=== PATIENT | female | born 1970 | race Caucasian/White ===

== ENCOUNTER 2017-11-15 18:49 | Emergency (ER) | payer SELFPAY ==
[2017-11-15] MEDS ORDERED: BENADRYL IV ONE (19:04)
[2017-11-15] MEDS ORDERED: REGLAN IV ONE (19:04)
[2017-11-15] MEDS ORDERED: NACL 0.9% 500 ML 500 ML IV ONE (19:04)
--- NOTE | 2017-11-15 19:04 | Emergency Department Report ---
ED Neuro Deficit HPI - General Chief Complaint: Neuro Symptoms/Deficit Stated Complaint: NEURO SYMPTOMS Time Seen by Provider: 11/15/17 19:02 Source: patient, family, RN notes reviewed Mode of arrival: Ambulatory Limitations: Language Barrier - History of Present Illness Initial Comments: This is a 47-year-old female who is not known to this provider previously. She presents to the ER with a complaint of numbness and tingling in her left arm and headache. The patient requested that her daughter translate for her. Her headache started around 2:00 this morning. Numbness, tingling and weakness in the left arm is reported to have started at 3:00 PM. The patient endorses no exacerbating or relieving factors. Her headache radiates down her left neck down her left arm and is retro-orbital. She cannot describe the qualitative nature. -: Gradual Location: left arm Presenting Symptoms: Present: Weak/Paralyzed One Side. Absent: Blurred/Loss of Vision, Facial Droop/Numbness, Unable to Speak Clearly, Altered Mental Status History of same: No Place: home Severity: moderate Quality: other Improves With: other Worsens With: other On Anticoagulants: No Context: gradual onset Associated Symptoms: headaches, malise, weakness. denies: confusion, chest pain , cough, diaphoresis, fever/chills, loss of appetite, nausea/vomiting, vertigo, seizures - Related Data Allergies/Adverse Reactions: Allergies Allergy/AdvReac Type Severity Reaction Status Date / Time Penicillins Allergy Rash Verified 11/15/17 18:55 ED Review of Systems ROS: Stated complaint: NEURO SYMPTOMS Other details as noted in HPI Comment: All other systems reviewed and negative ED Past Medical Hx - Past Medical History Previous Medical History?: Yes Additional medical history: hypotension - Surgical History Past Surgical History?: Yes Additional Surgical History: x 3 - Social History Smoking Status: Never Smoker Substance Use Type: None ED Neuro Physical Exam - General Limitations: Language Barrier General appearance: alert, anxious Suspected Stroke: No - Head Head exam: Present: atraumatic, normocephalic - Eye Eye exam: Present: normal appearance, PERRL, EOMI. Absent: nystagmus - ENT ENT exam: Present: normal exam, normal orophraynx, mucous membranes moist, normal external ear exam - Neck Neck exam: Present: normal inspection, full ROM. Absent: tenderness, meningismus - Respiratory Respiratory exam: Present: normal lung sounds bilaterally. Absent: respiratory distress - Cardiovascular Cardiovascular Exam: Present: regular rate, normal rhythm, normal heart sounds. Absent: bradycardia, tachycardia, irregular rhythm, systolic murmur, diastolic murmur, rubs, gallop - GI/Abdominal GI/Abdominal exam: Present: soft, normal bowel sounds. Absent: distended, tenderness, guarding, rebound, rigid, pulsatile mass - Extremities Exam Extremities exam: Present: normal inspection, full ROM, normal capillary refill , other (2+ pulses noted in the bilateral upper, lower extremities. Compartments soft. No long bony tenderness. The pelvis is stable.). Absent: tenderness, pedal edema, joint swelling, calf tenderness - Back Exam Back exam: Present: normal inspection, full ROM. Absent: tenderness, CVA tenderness (R), paraspinal tenderness, vertebral tenderness - Neurological Exam Neurological exam: Present: alert, CN II-XII intact, motor sensory deficit ( there is decreased sensation to light touch in the left upper extremity. There is 5 out of 5 strength bilateral upper, lower extremities. Sensation intact to light touch right upper, bilateral lower extremities) - NIHSS Assessment Interval: Baseline 1a. Level of Consciousness: alert 1b. LOC Questions: answers correctly 1c. LOC Commands: performs tasks correctly 2. Best Gaze: normal 3. Visual: no visual loss 4. Facial Palsy: normal symmetrical movement 5b. Motor Arm Right: no drift 5a. Motor Arm Left: no drift 6a. Motor Leg Left: no drift 6b. Motor Leg Right: no drift 7. Limb Ataxia: absent 8. Sensory: mild/moderate sensory loss 9. Best Language: no aphasia 10. Dysarthria: normal 11. Extinction/Inattention: no abnormality Total Score: 1 Stroke Severity: Minor Stroke - Psychiatric Psychiatric exam: Present: anxious - Skin Skin exam: Present: warm, dry, intact, normal color. Absent: rash ED Course Vital Signs 11/15/17 11/15/17 11/15/17 18:56 19:02 19:14 Temperature 98.3 F Pulse Rate 105 H 84 Respiratory 18 18 18 Rate Blood Pressure 141/93 129/81 O2 Sat by Pulse 99 99 98 Oximetry 11/15/17 11/15/17 19:16 19:30 Temperature Pulse Rate 86 80 Respiratory 25 H 25 H Rate Blood Pressure 129/81 121/78 O2 Sat by Pulse 98 97 Oximetry - Reevaluation(s) Reevaluation #1: 11/15/17 20:22 Differential diagnosis, including but not limited to: Complex migraine, stroke, transient ischemic attack, multiple sclerosis, cervical radiculopathy Assessment and plan: 47-year-old female complaining of left-sided head pain, reported left arm weakness, left arm numbness. The patient presented at approximately 4 hours after her sensory and motor symptom onset. On her exam, she has 5 out of 5 strength in the bilateral upper, lower extremities, and reported decreased sensation to light touch only in the left upper extremity. His appears sensory syndrome, NIH score of 1. In addition, her headache started hours prior to presentation. For these reasons, I deem the patient to not be a TPA candidate. Noncontrast CT scan of the brain is negative for acute disease. An angiogram of the head and neck also pending. Highly doubt significant large vascular occlusion. This case was discussed with consulting stroke neurologist, Dr. Raymond Shipman, who agrees with this aforementioned plan of care. The patient's presumed migraine will also be treated symptomatically. Reevaluation #2: 11/15/17 22:43 CT angiogram of the head and neck are negative. Aspirin is ordered. The Hospital physician, Dr. Freitas accepts to the medical service - Lab Data Result diagrams: 11/15/17 19:00 11/15/17 19:00 Lab Results 11/15/17 11/15/17 11/15/17 Range/Units 19:00 19:00 19:00 WBC 11.8 H (4.5-11.0) K/mm3 RBC 4.62 (3.65-5.03) M/mm3 Hgb 13.7 (10.1-14.3) gm/dl Hct 40.8 (30.3-42.9) % MCV 88 (79-97) fl MCH 30 (28-32) pg MCHC 34 (30-34) % RDW 14.8 (13.2-15.2) % Plt Count 222 (140-440) K/mm3 Lymph % (Auto) 24.5 (13.4-35.0) % [place] % (Auto) 7.9 H (0.0-7.3) % Eos % (Auto) 1.1 (0.0-4.3) % Baso % (Auto) 0.4 (0.0-1.8) % Lymph # 2.9 (1.2-5.4) K/mm3 [place] # 0.9 H (0.0-0.8) K/mm3 Eos # 0.1 (0.0-0.4) K/mm3 Baso # 0.0 (0.0-0.1) K/mm3 Seg Neutrophils % 66.1 (40.0-70.0) % Seg Neutrophils # 7.8 H (1.8-7.7) K/mm3 PT 13.6 (12.2-14.9) Sec. INR 0.99 (0.87-1.13) APTT 34.0 (24.2-36.6) Sec. Thrombin Time (15.1-19.6) Sec. Sodium 136 L (137-145) mmol/L Potassium 3.9 (3.6-5.0) mmol/L Chloride 97.3 L (98-107) mmol/L Carbon Dioxide 21 L (22-30) mmol/L Anion Gap 22 mmol/L BUN 14 (7-17) mg/dL Creatinine 0.6 L (0.7-1.2) mg/dL Estimated GFR > 60 ml/min BUN/Creatinine Ratio 23 % Glucose 129 H (65-100) mg/dL Calcium 9.2 (8.4-10.2) mg/dL Troponin T < 0.010 (0.00-0.029) ng/mL 11/15/17 Range/Units 19:00 WBC (4.5-11.0) K/mm3 RBC (3.65-5.03) M/mm3 Hgb (10.1-14.3) gm/dl Hct (30.3-42.9) % MCV (79-97) fl MCH (28-32) pg MCHC (30-34) % RDW (13.2-15.2) % Plt Count (140-440) K/mm3 Lymph % (Auto) (13.4-35.0) % [place] % (Auto) (0.0-7.3) % Eos % (Auto) (0.0-4.3) % Baso % (Auto) (0.0-1.8) % Lymph # (1.2-5.4) K/mm3 [place] # (0.0-0.8) K/mm3 Eos # (0.0-0.4) K/mm3 Baso # (0.0-0.1) K/mm3 Seg Neutrophils % (40.0-70.0) % Seg Neutrophils # (1.8-7.7) K/mm3 PT (12.2-14.9) Sec. INR (0.87-1.13) APTT (24.2-36.6) Sec. Thrombin Time 16.4 (15.1-19.6) Sec. Sodium (137-145) mmol/L Potassium (3.6-5.0) mmol/L Chloride (98-107) mmol/L Carbon Dioxide (22-30) mmol/L Anion Gap mmol/L BUN (7-17) mg/dL Creatinine (0.7-1.2) mg/dL Estimated GFR ml/min BUN/Creatinine Ratio % Glucose (65-100) mg/dL Calcium (8.4-10.2) mg/dL Troponin T (0.00-0.029) ng/mL - EKG Data -: EKG Interpreted by [facility] EKG shows normal: sinus rhythm When compared to previous EKG there are: previous EKG unavailable 11/15/17 20:24 Normal sinus, 99 bpm, normal axis, QTC prolonged, arrhythmia, abnormal EKG, not a STEMI - Radiology Data Radiology results: report reviewed, image reviewed Noncontrast CT scan of the brain is negative for acute disease - Core Measures Measure Exclusions: not indicated - Thrombolytic Inclusion/Exclusion Thrombolytic Exclusion Criteria: Symptom Onset > 3 Hours Thrombolytic Contraindications: Rapidily Improving s/s Critical care attestation.: If time is entered above; I have spent that time in minutes in the direct care of this critically ill patient, excluding procedure time. ED Disposition Clinical Impression: Headache, Left sided numbness Disposition: OP ADMIT IP TO THIS HOSP Is pt being admited?: Yes Does the pt Need Aspirin: Yes Condition: Good Referrals: PRIMARY CARE, [Primary Care Provider] - 3-5 Days
[2017-11-15 19:20] LABS: Basophils % (Auto) 0.4 % (0.0-1.8); Eosinophils # (Auto) 0.1 K/mm3 (0.0-0.4); Eosinophils % (Auto) 1.1 % (0.0-4.3); Hematocrit 40.8 % (30.3-42.9); Hemoglobin 13.7 gm/dl (10.1-14.3); Lymphocytes # (Auto) 2.9 K/mm3 (1.2-5.4); Lymphocytes % (Auto) 24.5 % (13.4-35.0); Mean Corpuscular HGB Conc 34 % (30-34); Mean Corpuscular Hemoglobin 30 pg (28-32); Mean Corpuscular Volume 88 fl (79-97); Monocytes # (Auto) 0.9 K/mm3 (0.0-0.8); Monocytes % (Auto) 7.9 % (0.0-7.3); Platelet Count 222 K/mm3 (140-440); Red Blood Count 4.62 M/mm3 (3.65-5.03); Red Cell Distribution Width 14.8 % (13.2-15.2)
[2017-11-15 19:21] LABS: BUN/Creatinine Ratio 23; Blood Urea Nitrogen 14 mg/dL (7-17); Calcium 9.2 mg/dL (8.4-10.2); Hemolysis Index 14
[2017-11-15 19:22] LABS: INR 0.99 (0.87-1.13)
--- NOTE | 2017-11-15 19:30 | Cat Scan Report ---
FINAL REPORT EXAM: CT HEAD/BRAIN WO CON HISTORY: neuro deficits < 6hrs or sx present upon awakening TECHNIQUE: Noncontrast CT axial images of the brain. PRIORS: None. FINDINGS: No parenchymal mass, mass effect, hemorrhage, midline shift or hydrocephalus. No evidence of acute cortical infarct. No abnormal, extra-axial fluid or air collection. Osseous calvarium grossly intact. Diffuse mucosal thickening in the right ethmoid and maxillary sinuses. IMPRESSION: 1. No acute intracranial findings. Please note that MRI is a far more sensitive modality in the evaluation of acute cerebral ischemia, and followup may be warranted. 2. Right paranasal sinus disease.
[2017-11-15 19:35] VITALS: BP 121/78
[2017-11-15] MEDS ORDERED: BABY ASPIRIN PO ONE (20:25)
--- NOTE | 2017-11-15 21:42 | Cat Scan Report ---
FINAL REPORT EXAM: CT ANGIO NECK HISTORY: cva TECHNIQUE: Following IV administration of 100 cc of Omnipaque 350 axial helical imaging was performed through the neck with maximum intensity projection images and 3D rendering of the major cervical arteries performed. Comparison: None FINDINGS: There is normal enhancement of the major cervical arteries without evidence of occlusion, stenosis, dissection or aneurysm. The vertebral arteries are codominant. There is normal enhancement of the major cervical venous structures. The bony structures are notable for cervical spondylosis with evidence of degenerative disc and endplate change at the C5-C6 level. IMPRESSION: 1. No evidence of occlusion, stenosis, dissection or aneurysm of the major cervical arteries. NASCET criteria were utilized. 2. Degenerative disc and endplate change C5-C6 level.
--- NOTE | 2017-11-15 22:29 | Cat Scan Report ---
FINAL REPORT EXAM: CT ANGIO HEAD HISTORY: cva TECHNIQUE: Spiral CTA of brain after the uneventful administration of IV contrast. Multiplanar reformations. 3D image post-procesessing was performed on an independent work station. PRIORS: CT brain of same date. FINDINGS: Normal enhancement of the basilar and bilateral internal carotid arteries and their main intracranial branches. No abnormal aneurysmal dilatation, significant stenosis or apparent occlusion. P-comm arteries evident bilaterally. No parenchymal mass, hemorrhage, midline shift or hydrocephalus. No evidence of acute cortical infarct. No abnormal extra-axial fluid or air collections. No pathologic enhancement. Osseous calvarium grossly intact. IMPRESSION: 1. No acute intracranial findings. 2. Less than 50% stenosis by NASCET criteria.
--- NOTE | 2017-11-15 22:43 | Event Note ---
Date: 11/15/17 Patient evaluated for L arm numbness since 3 pm Headache since 2am Under lot of stress Exam normal CTA Head and neck negative CT head negative Dx Conversion disorder No risk factors for CVA except obesity Discharge Home ASA 81 mg po qd F/u with Dr Jamal Mayers next week
== END 2017-11-15 23:03 | disposition admitted as inpatient to this hospital (09) ==
LOC: ED 18:49
DX: R51 Headache (principal); R20.0 Anesthesia of skin; Z88.0 Allergy status to penicillin
CPT/HCPCS: 36415; 70450; 70496; 70498; 80048; 84484; 85025; 85610; 85670; 85730; 93005; 93010; 96374; 99285; J1200; J2765; J7040; Q9967